=== PATIENT | female | born 1990 | race Caucasian/White ===

== ENCOUNTER 2022-07-17 13:21 | Outpatient (CLI) | payer OTHER, SELFPAY ==
--- NOTE | 2022-07-28 13:46 | W.PM.LAC.MC ---
Consult Note - Mom Date of Visit Date of visit: 07/17/22 senior sales consultant: Karen Correia Visit Code: Visit Patient's Information Phone number: [phone] : 1 Para: 1 Delivery Information Delivery type: Vaginal Weeks Gestation: 38.2 Gestational Age: AGA Weight: 2.977 kg Discharge Weight: 1.984 kg Baby's Information Baby's Age at Visit: 3 days Baby's Provider or Clinic: Dr. Woods Jaundice: No Reason for Consult Reason for Consult: painful latch Past Experience Past Experience: No Current Frequency of Day Feedings: every 1.5 - 2 hours Frequency of Night Feedings: about every 2 hours Both Breasts: Yes Suck: strong Latch: wide Length of Time: about 15 minutes total Pumping Pumping: No Supplementing EMB Supplement: No Formula Supplement: No Baby Elimination Number of Wet Diapers a Day: 6 - 8/day Number of BM a Day: about 6; transitional Breast/Nipple Condition Engorgement: Yes (milk began to come in this morning) Maternal Nipple Condition - Left: Common Nipple Maternal Nipple Condition - Right: Common Nipple Sore Nipples: Yes Onsite Pre-Feed weight: 2.784 kg Post-Feed weight: 2.818 kg Milk Transferred (mL): 34 Pre-Nursing Left Nipple: Within Normal Limits Pre-Nursing Right Nipple: Within Normal Limits Post-Nursing Left Nipple: Within Normal Limits Post-Nursing Right Nipple: Within Normal Limits Assessments/Interventions Assessments/Interventions: Met with mom and her now 3 day old ex- term AGA baby for consult; she rec'd her care and delivered with [facility] in [place].? Mom states baby is nursing all the time for several minutes on each side.? States her milk came in this morning and his last few feedings have been a little longer.? She reports is very painful.? She hasn't started pumping. Breasts WNL- slightly engorged, symmetrical with rounded lower quadrants, intramammary distance is < 1.5 inches.? Nipples are everted and don't flatten or retract on compression; no damage noted. Per POC baby was 6 lbs 9 oz (2977 grams) at and 6 lbs 6 oz (2892 grams) at D/C.? Baby has not started to gain weight from D/C and is 6% below BW at 3 DOL.? POC deny any caput/cephalohematoma at delivery and state he may favor turning his head to the right but has equal ROM when moving his extremities.? Palate is WNL.? Upper and lower frenulum are WNL.? Baby has a strong suck on a finger, the tongue easily extends past the gum line and has good lateral movement with minimal canoeing.? Mom needed quite a bit of coaching to latch baby to the left side comfortably- turning him into her tummy to tummy, supporting the base of his head, supporting her breast in the C hold, and pointing her nipple to baby's nose.? After a few unsuccessful attempts in the football hold we tried the cross cradle.? Mom did much better and looked more comfortable, giving her pain rating a 4/10 but stated it got a little better over the course of the feeding.? Baby came off after about 25 minutes and POC were shown how to burp baby.? Mom then offered the right side but baby was too sleepy.? He was weighed and had transferred 34 ml. Mom's flanges were assessed and it was suggested she order 18 or 20 mm flanges. Plan: 1. Continue to nurse baby every 2 - 3 hours, looking for feeding cues but not going past three hours for now.? Try the ideas above to get a deep latch (discussed how to take baby off to protect the nipple if the latch is shallow).? Offer both sides but it's ok if he only wants one side.? 2. If baby doesn't nurse from both sides, pump the side he doesn't nurse from to comfort.? May also need to pump or hand express before nursing to soften the breasts until the engorgement resolves. 3. Reviewed that there's no medical need to supplement or pump to empty so suggested mom just practice nursing and recover from delivery.? 4. Baby has NB visit on 07/18 and will f/u by phone on 07/24 to see how mom is doing.? Encouraged her to call anytime if she has questions or concerns. 5. Will fax note to her OB provider.
== END 2022-07-17 13:22 | disposition home or self-care (01) ==
PROVIDERS: PCP Family Medicine; Visit Provider Obstetrics & Gynecology
DX: Z39.1 Encounter for care and examination of lactating mother (principal)
CPT/HCPCS: 99211